=== PATIENT | male | born 1975 | race Caucasian/White ===

== ENCOUNTER 2018-05-27 17:14 | Inpatient (IN) | payer OTHER ==
[2018-05-27 17:22] VITALS: BMI 23.0
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
[2018-05-27] MEDS ORDERED: P-EPHED 60MG/TRIPROLIDI 2.5MG TABLET PO PRN (21:03)
[2018-05-27] MEDS ORDERED: MENTHOL/PHENOL 1 EACH UD MM PRN (21:03)
[2018-05-27] MEDS ORDERED: LOPERAMIDE HCL 2 MG CAPSULE PO PRN (21:03)
[2018-05-27] MEDS ORDERED: guaiFENesin/D-METHORPHAN HB 10 ML UNIT-DOSE CUPS PO PRN (21:03)
[2018-05-27] MEDS ORDERED: NICOTINE POLACRILEX 2 MG GUM BC PRN (21:03)
[2018-05-27] MEDS ORDERED: IBUPROFEN 400 MG TABLET (FP) PO PRN (21:03)
[2018-05-27] MEDS ORDERED: MAGNESIUM CITRATE 300 ML BOTTLE PO PRN (21:03)
[2018-05-27] MEDS ORDERED: MAGNESIUM HYDROX 2400MG/30ML ORAL SUSPENSION 30 ML CUP PO PRN (21:03)
[2018-05-27] MEDS ORDERED: MAG HYDROX/AL HYDROX/SIMETH 30 ML UNIT-DOSE CUP PO PRN (21:03)
[2018-05-27] MEDS ORDERED: ACETAMINOPHEN 325 MG TABLET (FP) PO PRN (21:03)
[2018-05-27] MEDS ORDERED: METHADONE HCL 10 MG TABLET (FOR DETOX USE ONLY) PO ONE ×2 (21:30→23:00)
[2018-05-27] MEDS: diazePAM 5 MG TABLET PO PRN (22:44)
[2018-05-27] MEDS: SULFAMETHOXAZOLE/TRIMETHOPRIM 800MG/160MG D.S. TABLET PO SCH (22:44)
[2018-05-27] MEDS: THIAMINE HCL 100 MG TABLET (FP) PO SCH (22:45)
[2018-05-28] MEDS: ALBUTEROL SO4 8 GM HFA INHALER IH PRN ×2 (07:12→20:36)
[2018-05-28] MEDS: SULFAMETHOXAZOLE/TRIMETHOPRIM 800MG/160MG D.S. TABLET PO SCH ×2 (09:51→22:24)
[2018-05-28] MEDS: diazePAM 5 MG TABLET PO PRN ×3 (09:51→20:37)
[2018-05-28] MEDS: PRENATAL VITAMINS W/ FOLIC ACID TABLET (FP) PO SCH (09:51)
[2018-05-28] MEDS: NICOTINE 14 MG/24 HOURS TOPICAL PATCH TD SCH (09:52)
[2018-05-28] MEDS ORDERED: METHADONE HCL 10 MG TABLET (FOR DETOX USE ONLY) PO ONE (10:00)
[2018-05-28 10:48] LABS: HEMATOCRIT 44.6 % (35.4-49); HEMOGLOBIN 14.5 GM/dL (11.7-16.9); MCHC 32.6 g/dl (32.0-35.9); MEAN CELL VOLUME 89.2 fl (80-96); PLATELET COUNT 247 K/MM3 (134-434); RBC 5.01 M/mm3 (4.00-5.60); RDW 14.4 % (11.9-15.9)
[2018-05-28 10:50] LABS: ALBUMIN 3.6 g/dl (3.4-5.0); ALK PHOS 128 U/L (45-117); ANION GAP 6 MMOL/L (8-16); BILIRUBIN,TOTAL 0.2 mg/dL (0.2-1); BLOOD UREA NITROGEN 16 mg/dL (7-18); CALCIUM 8.6 mg/dL (8.5-10.1); CHLORIDE 105 mmol/L (98-107); CO2 28 mmol/L (21-32); GLUCOSE,RANDOM 80 mg/dL (74-106); POTASSIUM 4.3 mmol/L (3.5-5.1); SGOT/AST 11 U/L (15-37); SGPT/ALT 17 U/L (13-61); SODIUM 140 mmol/L (136-145); TOT PROT 7.9 g/dl (6.4-8.2)
--- NOTE | 2018-05-28 12:34 | PN ---
BHS COWS - Scale Resting Pulse: 1= [place] 81-100 Sweatin= No chills or Flushing Restless Observation: 0= Sits Still Pupil Size: 2= Moderately Dilated Bone or Joint Aches: 2= Severe Diffuse Aches Runny Nose/ Eye Tearin= Nasal Congestion GI Upset > 30mins: 0= None Tremor Observation of Outstretched Hands: 0= None Yawning Observation: 1= 1-2x During Session Anxiety or Irritability: 2=Irritable/Anxious Goose Flesh Skin: 0=Smooth Skin COWS Score: 9 BHS Progress Note (SOAP) Subjective: PATIENT C/O INTERRUPTED SLEEP, ANXIETY, BODY ACHES. Objective: 05/28/18 12:32 Laboratory Tests 05/28/18 05/28/18 05/28/18 07:00 07:00 07:00 WBC 9.0 RBC 5.01 Hgb 14.5 Hct 44.6 MCV 89.2 MCH 29.0 MCHC 32.6 RDW 14.4 Plt Count 247 MPV 9.0 Sodium 140 Potassium 4.3 Chloride 105 Carbon Dioxide 28 Anion Gap 6 L BUN 16 Creatinine 1.0 Creat Clearance w eGFR > 60 Random Glucose 80 Calcium 8.6 Total Bilirubin 0.2 AST 11 L ALT 17 Alkaline Phosphatase 128 H Total Protein 7.9 Albumin 3.6 RPR Titer Nonreactive Vital Signs Temperature 98.4 F 05/28/18 09:47 Pulse Rate 60 05/28/18 09:47 Respiratory Rate 18 05/28/18 09:47 Blood Pressure 114/68 05/28/18 09:47 O2 Sat by Pulse Oximetry (%) PE: ALERT AND ORIENTED X 3 SKIN WARM AND DRY +NASAL CONGESTION EXT FULL ROM, AMB AD GREGORY MILDLY ANXIOUS Assessment: 05/28/18 12:33 WITHDRAWAL SX Plan: CONTINUE DETOX ENCOURAGE ORAL FLUIDS CONTINUE TO MONITOR
[2018-05-28] MEDS: MELATONIN 5 MG TABLETS PO PRN (22:24)
[2018-05-28] MEDS: THIAMINE HCL 100 MG TABLET (FP) PO SCH (22:24)
[2018-05-29] MEDS: ALBUTEROL SO4 8 GM HFA INHALER IH PRN ×3 (08:23→21:16)
[2018-05-29] MEDS ORDERED: METHADONE HCL 5 MG TABLET (FOR DETOX USE ONLY) PO ONE (10:00)
[2018-05-29] MEDS: SULFAMETHOXAZOLE/TRIMETHOPRIM 800MG/160MG D.S. TABLET PO SCH ×2 (10:40→22:26)
[2018-05-29] MEDS: PRENATAL VITAMINS W/ FOLIC ACID TABLET (FP) PO SCH (10:40)
[2018-05-29] MEDS: NICOTINE 14 MG/24 HOURS TOPICAL PATCH TD SCH (10:41)
--- NOTE | 2018-05-29 16:33 | PN ---
S CIWA - CIWA Score Nausea/Vomitin-No Nausea/No Vomiting Muscle Tremors: 3 Anxiety: 2 Agitation: 0-Normal Activity Paroxysmal Sweats: 3 Orientation: 0-Oriented Tacttile Disturbances: 2-Mild Itch/Numbness/Burn Auditory Disturbances: 0-None Visual Disturbances: 0-None Headache: 3-Moderate CIWA-Ar Total Score: 13 BHS Progress Note (SOAP) Subjective: Body Aches, Interrupted Sleep, Seating, Tremors, H/A. Objective: PATIENT A & O X 3, OBSERVED AMBULATING ON UNIT. IN NO ACUTE DISTRESS. 05/29/18 16:34 Vital Signs Temperature 98 F 05/29/18 14:40 Pulse Rate 86 05/29/18 14:40 Respiratory Rate 18 05/29/18 14:40 Blood Pressure 110/79 05/29/18 14:40 O2 Sat by Pulse Oximetry (%) Laboratory Tests 05/28/18 05/28/18 05/28/18 07:00 07:00 07:00 WBC 9.0 RBC 5.01 Hgb 14.5 Hct 44.6 MCV 89.2 MCH 29.0 MCHC 32.6 RDW 14.4 Plt Count 247 MPV 9.0 Sodium 140 Potassium 4.3 Chloride 105 Carbon Dioxide 28 Anion Gap 6 L BUN 16 Creatinine 1.0 Creat Clearance w eGFR > 60 Random Glucose 80 Calcium 8.6 Total Bilirubin 0.2 AST 11 L ALT 17 Alkaline Phosphatase 128 H Total Protein 7.9 Albumin 3.6 RPR Titer Nonreactive LABS NOTED. Assessment: 05/29/18 16:34 WITHDRAWAL SYMPTOMS. Plan: CONTINUE DETOX.
[2018-05-29] MEDS: CYCLOBENZAPRINE HCL 10 MG TABLET (FP) PO PRN ×2 (17:17→22:26)
[2018-05-29] MEDS: diazePAM 5 MG TABLET PO PRN ×2 (17:17→22:26)
[2018-05-29] MEDS: THIAMINE HCL 100 MG TABLET (FP) PO SCH (22:25)
[2018-05-29] MEDS: MELATONIN 5 MG TABLETS PO PRN (22:26)
[2018-05-30] MEDS ORDERED: METHADONE HCL 5 MG TABLET (FOR DETOX USE ONLY) PO ONE (10:00)
[2018-05-30] MEDS: PRENATAL VITAMINS W/ FOLIC ACID TABLET (FP) PO SCH (11:00)
[2018-05-30] MEDS: NICOTINE 14 MG/24 HOURS TOPICAL PATCH TD SCH (11:00)
[2018-05-30] MEDS: SULFAMETHOXAZOLE/TRIMETHOPRIM 800MG/160MG D.S. TABLET PO SCH ×2 (12:03→22:37)
--- NOTE | 2018-05-30 15:13 | PN ---
BHS Progress Note (SOAP) Subjective: Restless legs, sweating, interrupted sleep Objective: 05/30/18 15:12 Last Vital Signs Temp Pulse Resp BP Pulse Ox 96.9 F L 84 18 127/85 05/30/18 13:28 05/30/18 13:28 05/30/18 13:28 05/30/18 13:28 Laboratory Tests 05/28/18 05/28/18 05/28/18 07:00 07:00 07:00 WBC 9.0 RBC 5.01 Hgb 14.5 Hct 44.6 MCV 89.2 MCH 29.0 MCHC 32.6 RDW 14.4 Plt Count 247 MPV 9.0 Sodium 140 Potassium 4.3 Chloride 105 Carbon Dioxide 28 Anion Gap 6 L BUN 16 Creatinine 1.0 Creat Clearance w eGFR > 60 Random Glucose 80 Calcium 8.6 Total Bilirubin 0.2 AST 11 L ALT 17 Alkaline Phosphatase 128 H Total Protein 7.9 Albumin 3.6 RPR Titer Nonreactive Labs reviewed Assessment: 05/30/18 15:13 Withdrawal symptoms Plan: Continue detox Encouraged PO water intake
[2018-05-30] MEDS: ALBUTEROL SO4 8 GM HFA INHALER IH PRN (19:05)
[2018-05-30] MEDS: diazePAM 5 MG TABLET PO PRN (19:05)
[2018-05-30] MEDS: CYCLOBENZAPRINE HCL 10 MG TABLET (FP) PO PRN (19:05)
[2018-05-30] MEDS: THIAMINE HCL 100 MG TABLET (FP) PO SCH (22:37)
[2018-05-31] MEDS: CYCLOBENZAPRINE HCL 10 MG TABLET (FP) PO PRN (05:14)
[2018-05-31] MEDS: ALBUTEROL SO4 8 GM HFA INHALER IH PRN (05:15)
[2018-05-31 09:28] VITALS: BP 122/83; PULSE 118; TEMP 96.8
[2018-05-31] MEDS: PRENATAL VITAMINS W/ FOLIC ACID TABLET (FP) PO SCH (09:32)
[2018-05-31] MEDS: NICOTINE 14 MG/24 HOURS TOPICAL PATCH TD SCH (09:34)
[2018-05-31] MEDS: SULFAMETHOXAZOLE/TRIMETHOPRIM 800MG/160MG D.S. TABLET PO SCH (09:34)
[2018-05-31] MEDS ORDERED: METHADONE HCL 10 MG TABLET (FOR DETOX USE ONLY) PO ONE (10:00)
[2018-05-31] MEDS ORDERED: METHADONE HCL 5 MG TABLET (FOR DETOX USE ONLY) PO ONE (10:00)
--- NOTE | 2018-05-31 15:18 | DS ---
[facility] Detox Discharge Summary Admission Date: 05/27/18 Discharge Date: 05/31/18 - History Present History: Opioid Dependence Additional Comments: 42 years old male admitted on 05/27/18 for opiate withdrawal stabilization feeling better today preferred to begin chemical rehab at [facility] alert no acute distress denies suicidal denies homocidal no self destructive behavior - Physical Exam Results Vital Signs: Vital Signs Temperature 96.8 F L 05/31/18 09:27 Pulse Rate 118 H 05/31/18 09:27 Respiratory Rate 18 05/31/18 09:27 Blood Pressure 122/83 05/31/18 09:27 O2 Sat by Pulse Oximetry (%) Pertinent Admission Physical Exam Findings: opiate withdrawal sx Laboratory Last Values WBC 9.0 K/mm3 (4.0-10.0) 05/28/18 07:00 RBC 5.01 M/mm3 (4.00-5.60) 05/28/18 07:00 Hgb 14.5 GM/dL (11.7-16.9) 05/28/18 07:00 Hct 44.6 % (35.4-49) 05/28/18 07:00 MCV 89.2 fl (80-96) 05/28/18 07:00 MCH 29.0 pg (25.7-33.7) 05/28/18 07:00 MCHC 32.6 g/dl (32.0-35.9) 05/28/18 07:00 RDW 14.4 % (11.9-15.9) 05/28/18 07:00 Plt Count 247 K/MM3 (134-434) 05/28/18 07:00 MPV 9.0 fl (7.5-11.1) 05/28/18 07:00 Sodium 140 mmol/L (136-145) 05/28/18 07:00 Potassium 4.3 mmol/L (3.5-5.1) 05/28/18 07:00 Chloride 105 mmol/L (98-107) 05/28/18 07:00 Carbon Dioxide 28 mmol/L (21-32) 05/28/18 07:00 Anion Gap 6 MMOL/L (8-16) L 05/28/18 07:00 BUN 16 mg/dL (7-18) 05/28/18 07:00 Creatinine 1.0 mg/dL (0.55-1.3) 05/28/18 07:00 Creat Clearance w eGFR > 60 (>60) 05/28/18 07:00 Random Glucose 80 mg/dL (74-106) 05/28/18 07:00 Calcium 8.6 mg/dL (8.5-10.1) 05/28/18 07:00 Total Bilirubin 0.2 mg/dL (0.2-1) 05/28/18 07:00 AST 11 U/L (15-37) L 05/28/18 07:00 ALT 17 U/L (13-61) 05/28/18 07:00 Alkaline Phosphatase 128 U/L (45-117) H 05/28/18 07:00 Total Protein 7.9 g/dl (6.4-8.2) 05/28/18 07:00 Albumin 3.6 g/dl (3.4-5.0) 05/28/18 07:00 RPR Titer Nonreactive (NONREACTIVE) 05/28/18 07:00 lab noted - Treatment Hospital Course: Detox Protocol Followed, Detoxed Safely, Responded well, Discharged Condition Good, Rehab Referral Accepted Patient has Accepted a Rehab Referral to: [facility] - Medication Discharge Medications: Ambulatory Orders Albuterol Sulfate Inhaler - [Ventolin HFA Inhaler -] 1 - 2 inh PO Q4H 02/27/16 Levothyroxine [Synthroid -] 112 mcg PO DAILY 02/27/16 - Diagnosis (1) Opioid dependence with withdrawal Status: Acute (2) Asthma Status: Chronic Qualifiers: Asthma severity: mild Asthma persistence: intermittent Asthma complication type: uncomplicated Qualified Code(s): J45.20 - Mild intermittent asthma, uncomplicated (3) Nicotine dependence Status: Acute Qualifiers: Nicotine product type: cigarettes Substance use status: in withdrawal Qualified Code(s): F17.213 - Nicotine dependence, cigarettes, with withdrawal - AMA Did Patient Leave Against Medical Advice: No
[2018-06-01] MEDS ORDERED: METHADONE HCL 5 MG TABLET (FOR DETOX USE ONLY) PO ONE (06:00)
== END 2018-05-31 09:38 | disposition home or self-care (01) | DRG 897 ==
LOC: YASAS 17:14 → Y3N 21:01
PROC: HZ2ZZZZ Detoxification Services for Substance Abuse Treatment (ICD-10-PCS; principal; 2018-05-27)
DX: F11.23 Opioid dependence with withdrawal (principal); F14.20 Cocaine dependence, uncomplicated; L03.116 Cellulitis of left lower limb; L02.416 Cutaneous abscess of left lower limb; F13.10 Sedative, hypnotic or anxiolytic abuse, uncomplicated; F17.213 Nicotine dependence, cigarettes, with withdrawal; F32.9 Major depressive disorder, single episode, unspecified; J45.20 Mild intermittent asthma, uncomplicated; Z88.0 Allergy status to penicillin
CPT/HCPCS: 36415; 80053; 85027; 86593